=== PATIENT | female | born 1985 | race African-American/Black ===

== ENCOUNTER 2020-12-21 19:41 | Emergency (ER) | payer MEDICARE, BC, OTHER ==
[~2020-12-21] VITALS: Ht 165.1 cm; Wt 150.0 kg
[2020-12-21] MEDS ORDERED: KETOROLAC 30MG/ML VIAL IV STA (20:21)
[2020-12-21] MEDS ORDERED: ALBUTEROL (0.083%) 2.5MG/3ML NEB HHN STA (20:22)
[2020-12-21 21:40] LABS: BASOPHILS % 0.7 % (0.0-2.0); HEMATOCRIT. 37.8 % (36.0-48.0); HEMOGLOBIN. 11.9 g/dL (12.0-16.0); LYMPHOCYTES % 26.8 % (20.0-50.0); MEAN CORPUSCULAR HEMOGLOBIN 23.4 pg (28.0-32.0); MEAN CORPUSCULAR VOLUME 74.3 fL (81.0-99.0); NEUTROPHILS % 62.5 % (40.0-76.0); PLATELET 415 x1000/uL (130-400); RED BLOOD CELL COUNT 5.08 mill/uL (4.2-5.4); RED CELL DISTRIBUTION WIDTH 16.9 % (11.6-14.6)
[2020-12-21 21:46] LABS: CHLORIDE 106 mEq/L (98-107)
[2020-12-21] MEDS ORDERED: IOHEXOL-350 100 ML BOTTLE ONE (23:28)
[2020-12-22] MEDS ORDERED: KETOROLAC 30MG/ML VIAL IV SCH (00:30)
[2020-12-22] MEDS ORDERED: TOPUD PO (00:48)
[2020-12-22 01:00] VITALS: BP 119/87
== END 2020-12-22 01:13 | disposition home or self-care (01) ==
LOC: ER 19:41
DX: R07.89 Other chest pain (principal); R06.02 Shortness of breath; J45.909 Unspecified asthma, uncomplicated; E11.9 Type 2 diabetes mellitus without complications
CPT/HCPCS: 36415; 71045; 71275; 80053; 81025; 83880; 84484; 85025; 85379; 93005; 94640; 96374; 99285; J1885; Q9967

== ENCOUNTER 2024-03-06 11:09 | Emergency (ER) | payer MEDICARE, BC, OTHER ==
[~2024-03-06] VITALS: Ht 170.2 cm; Wt 118.0 kg
[~2024-03-06 11:09] MED LIST: TOPUD PO
[2024-03-06 11:20] VITALS: O2SAT 99
[2024-03-06 13:20] LABS: CHLORIDE 103 mEq/L (98-107); POTASSIUM 3.6 mEq/L (3.5-5.1); SODIUM 137 mEq/L (136-145)
[2024-03-06 13:22] LABS: CARBON DIOXIDE 29 mEq/L (21-32)
[2024-03-06 13:23] LABS: CALCIUM 9.2 mg/dL (8.7-10.4)
[2024-03-06 13:26] LABS: HEMATOCRIT. 38.3 % (36.0-48.0); HEMOGLOBIN. 12.5 g/dL (12.0-16.0); LYMPHOCYTES % 24.4 % (20.0-50.0); MEAN CORPUSCULAR HEMOGLOBIN 26.8 pg (28.0-32.0); MEAN CORPUSCULAR HGB CONC 32.5 g/dL (31.0-37.0); MEAN CORPUSCULAR VOLUME 82.3 fL (81.0-99.0); MEAN PLATELET VOLUME 7.7 fl (7.4-10.4); MONOCYTES % 5.2 % (2.0-8.0); NEUTROPHILS % 65.4 % (40.0-76.0); PLATELET 332 x1000/uL (130-400); RED BLOOD CELL COUNT 4.65 mill/uL (4.2-5.4); RED CELL DISTRIBUTION WIDTH 16.3 % (11.6-14.6); WHITE BLOOD COUNT 8.5 x1000/uL (4.5-11.0)
[2024-03-06 13:27] LABS: CREATININE 0.8 mg/dL (0.6-1.0); GLUCOSE 82 mg/dL (70-105)
[2024-03-06 13:29] LABS: ALANINE AMINOTRANSFERASE 8 IU/L (10-49); ALBUMIN 4.3 g/dL (3.2-4.8); ASPARTATE AMINOTRANSFERASE 12 IU/L (<34); BILIRUBIN DIRECT 0.2 mg/dL (<=3.0); HCG SCREEN NEGATIVE
[2024-03-06 13:30] LABS: BILIRUBIN TOTAL 0.5 mg/dL (0.1-1.0); PROTEIN TOTAL 7.4 g/dL (6.0-8.3); UREA NITROGEN BLOOD < 5 mg/dL (9-23)
[2024-03-06 14:29] LABS: CLARITY URINE CLEAR (CLEAR); COLOR URINE YELLOW (YELLOW); GLUCOSE URINE NEGATIVE (NEGATIVE); KETONES URINE NEGATIVE (NEGATIVE); LEUKOCYTE ESTERASE URINE NEGATIVE (NEGATIVE); NITRITE URINE NEGATIVE (NEGATIVE); OCCULT BLOOD URINE NEGATIVE (NEGATIVE); PROTEIN URINE NEGATIVE (NEGATIVE); SPECIFIC GRAVITY URINE 1.016 (1.005-1.030)
[2024-03-06] MEDS ORDERED: ACET-2708 MT (14:54)
[2024-03-06] MEDS: KETOROLAC 30MG/ML VIAL IM ONE (14:54)
[2024-03-06] MEDS ORDERED: DICY10SO MT (14:54)
[2024-03-06] MEDS ORDERED: FAMO-135 MT (14:54)
[2024-03-06] MEDS: AZITHROMYCIN 500 MG TABLET PO ONE (16:02)
[2024-03-06] MEDS: CEFTRIAXONE SODIUM 500MG VIAL IM ONE (16:02)
[2024-03-06 16:03] VITALS: BP 133/94; PULSE 81; RESP 18; TEMP 37.00296; O2SAT 99
== END 2024-03-06 16:03 | disposition home or self-care (01) ==
LOC: ER 11:09
DX: R10.31 Right lower quadrant pain (principal); J45.909 Unspecified asthma, uncomplicated
CPT/HCPCS: 99285; 74176; 80076; 80048; 81003; 81025; 84703; 83690; 85025; 36415; 96372; J1885